=== PATIENT | male | born 1980 | race Caucasian/White ===

== ENCOUNTER 2017-08-07 17:50 | Emergency (ER) | payer SELFPAY ==
--- NOTE | 2017-08-07 19:46 | ER ---
Nurse's Notes [facility] Name: Brayan Zaman Age: 36 yrs Sex: Male : 1980 Arrival Date: 08/07/2017 Time: 17:53 Bed Treatment Private MD: Out, [facility] Diagnosis: Periapical abscess without sinus Presentation: 08/07 18:27 Presenting complaint: Patient states: Left side tooth pain, swelling... onset Monday. rk2 Was started on antibiotics by dentis. Transition of care: patient was not received from another setting of care. Onset of symptoms was August 07, 2017. Initial Sepsis Screen: Does the patient meet any 2 criteria? No. Patient's initial sepsis screen is negative. Does the patient have a suspected source of infection?. Care prior to arrival: None. 18:27 Method Of Arrival: Ambulatory rk2 18:27 Acuity: TOM 4 rk2 Historical: - Allergies: 18:29 No Known Allergies; rk2 - PMHx: 19:21 Anxiety; Depression; lk1 - Immunization history:: Pneumococcal vaccine is not up to date, Flu vaccine is not up to date. - Social history:: Smoking status: Patient uses tobacco products, smokes one-half pack cigarettes per day. Screenin:20 Abuse screen: Denies threats or abuse. Denies injuries from another. Nutritional lk1 screening: No deficits noted. Tuberculosis screening: No symptoms or risk factors identified. Fall Risk None identified. Assessment: 19:19 General: Appears in no apparent distress. Behavior is calm, cooperative, appropriate lk1 for age. Pain: Complains of pain in mouth Pain currently is 10 out of 10 on a pain scale. Neuro: Level of Consciousness is awake, alert, obeys commands, Oriented to person, place, time, situation. Cardiovascular: Capillary refill is brisk Patient's skin is warm and dry. Respiratory: Airway is patent Respiratory effort is even, unlabored, Respiratory pattern is regular, symmetrical. GI: Abdomen is non-distended. EENT: Poor dentition noted. Vital Signs: 18:29 BP 128 / 81; Pulse 73; Resp 18; Temp 98; Pulse Ox 99.4% ; Weight 83.91 kg; Pain 10/10; rk2 20:17 BP 122 / 78; Pulse 82; Resp 16; Temp 99.7(O); Pulse Ox 100% on R/A; Pain 10/10; lk1 ED Course: 17:53 Patient arrived in ED. mr 17:54 Out, of Town is Private Physician. mr 18:29 Triage completed. rk2 18:29 Arm band placed on left wrist. rk2 19:19 Manju Contreras, RN is Primary Nurse. lk1 19:20 Patient has correct armband on for positive identification. Bed in low position. Call lk1 light in reach. 19:22 Tyler Queen MD is Attending Physician. 20:16 No provider procedures requiring assistance completed. Patient did not have IV access lk1 during this emergency room visit. Administered Medications: No medications were administered Outcome: 19:46 Discharge ordered by . 20:17 Discharged to home ambulatory. lk1 20:17 Condition: good 20:17 Discharge instructions given to patient, Instructed on discharge instructions, follow up and referral plans. medication usage, safety practices, Demonstrated understanding of instructions, follow-up care, medications, Prescriptions given X 1. 20:19 Patient left the ED. lk1 Signatures: Elli Jones mr Manju Contreras, RN RN lk1 Tyler Queen MD MD Jaycee Ashley RN RN rk2
--- NOTE | 2017-08-07 19:46 | EDPHYS ---
Physician Documentation [facility] Name: Brayan Zaman Age: 36 yrs Sex: Male : 1980 Arrival Date: 08/07/2017 Time: 17:53 Bed Treatment Private MD: Out, [facility] ED Physician Tyler Queen HPI: 08/08 10:24 This 36 yrs old Male presents to ER via Ambulatory with complaints of Mouth gs Swelling. 10:24 The patient presents with broken tooth/teeth, pain, swelling. The problem is located in gs the upper left first molar. Onset: The symptoms/episode began/occurred 3 day(s) ago, and became worse and became persistent. Duration: The symptoms are continuous. Modifying factors: the symptoms are aggravated by food. Associated signs and symptoms: Pertinent positives: swelling, facial. Severity of symptoms: At their worst the symptoms were mild, in the emergency department the symptoms are unchanged. The patient has experienced a previous episode. 10:24 The patient has been recently seen by a physician: a dentist, with similar presenting gs complaints, was given a prescription for antibiotics. Historical: - Allergies: 08/07 18:29 No Known Allergies; rk2 - PMHx: 19:21 Anxiety; Depression; lk1 - Immunization history:: Pneumococcal vaccine is not up to date, Flu vaccine is not up to date. - Social history:: Smoking status: Patient uses tobacco products, smokes one-half pack cigarettes per day. ROS: 08/08 10:24 All other systems are negative. gs 10:24 Constitutional: Negative for fever. gs Exam: 10:24 Eyes: Pupils equal round and reactive to light, extra-ocular motions intact. Lids and gs lashes normal. Conjunctiva and sclera are non-icteric and not injected. Cornea within normal limits. Periorbital areas with no swelling, redness, or edema. Neck: Trachea midline, no thyromegaly or masses palpated, and no cervical lymphadenopathy. Supple, full range of motion without nuchal rigidity, or vertebral point tenderness. No Meningismus. Chest/axilla: Normal chest wall appearance and motion. Nontender with no deformity. No lesions are appreciated. Cardiovascular: Regular rate and rhythm with a normal S1 and S2. No gallops, murmurs, or rubs. Normal PMI, no JVD. No pulse deficits. Respiratory: Lungs have equal breath sounds bilaterally, clear to auscultation and percussion. No rales, rhonchi or wheezes noted. No increased work of breathing, no retractions or nasal flaring. Skin: Warm, dry with normal turgor. Normal color with no rashes, no lesions, and no evidence of cellulitis. Neuro: Awake and alert, GCS 15, oriented to person, place, time, and situation. Cranial nerves II-XII grossly intact. Motor strength 5/5 in all extremities. Sensory grossly intact. Cerebellar exam normal. Normal gait. 10:24 Constitutional: The patient appears alert, awake. 10:24 Head/face: Noted is swelling, that is mild, of the left cheek. 10:24 ENT: Mouth: Gums: swollen, Dental exam: abscess, that is mild, dental caries. 10:27 ENT: Voice: is normal. Vital Signs: 08/07 18:29 BP 128 / 81; Pulse 73; Resp 18; Temp 98; Pulse Ox 99.4% ; Weight 83.91 kg; Pain 10/10; rk2 20:17 BP 122 / 78; Pulse 82; Resp 16; Temp 99.7(O); Pulse Ox 100% on R/A; Pain 10/10; lk1 MDM: 19:45 Patient medically screened. 08/08 10:24 Differential diagnosis: dental caries, gingivitis, dental abscess. Data reviewed: vital gs signs, nurses notes, and as a result, I will discharge patient. Administered Medications: No medications were administered Disposition: 08/07/17 19:46 Discharged to Home. Impression: Periapical abscess without sinus. - Condition is Stable. - Prescriptions for Tylenol- Codeine #4 300-60 mg Oral Tablet - take 1 tablet by ORAL route every 6 hours As needed; 12 tablet. - Medication Reconciliation Form, Thank You Letter, Antibiotic Education, Prescription Opioid Use form. - Follow up: Private Physician; When: 2 - 3 days; Reason: Re-evaluation by your physician. Signatures: Manju Contreras, RN RN lk1 Tyler Queen MD MD Jaycee Ashley RN RN rk2
== END 2017-08-07 20:19 | disposition home or self-care (01) ==
LOC: ER 17:50
DX: K04.7 Periapical abscess without sinus (principal); F17.210 Nicotine dependence, cigarettes, uncomplicated
CPT/HCPCS: 99282